=== PATIENT | male | born 1945 | race Caucasian/White ===

== ENCOUNTER → 2023-03-12 09:41 | Outpatient (CLI) | payer MEDICARE, SELFPAY ==
--- NOTE | ~2023-03-12 | MR_ITS ---
EXAMINATION: MR hip RT wo con DATE: 03/12/2023 11:11 INDICATION: Right hip pain. Suspected osteonecrosis. TECHNIQUE: Magnetic resonance imaging (MRI) of the right hip was performed without intravenous contr ast. Sequences included full-field axial PD-weighted FS FSE and T1-weighted FSE, coronal of the pelvi s with PD-weighted FS FSE, T2-weighted FSE and T1-weighted FSE, small field of view of the right hip with axial PD-weighted FS FSE, sagittal PD-weighted FS FSE, coronal PD-weighted FS FSE and coronal T2 weighted FSE. Additional radial T1-weighted FGR oriented orthogonal to the acetabular rim were obt ained for evaluation of the labrum. COMPARISON: None FINDINGS: Bones/labrum/cartilage: Alignment is normal. No fracture, avascular necrosis or pathologic marrow replacing process. Moderat e osteoarthritis at the right hip with partial thickness cartilage loss most severe anteriorly where it involves greater than 50% the cartilage thickness. There is a small flat central subchondral osteo phyte and minimal underlying subarticular edema-like signal change at the anterior articular surface of the femoral head. There is diffuse degenerative tearing of the right acetabular labrum which is mo st prominent from the anterosuperior to posterior superior labrum which appears thickened with promin ent amorphous increased signal. There is mild subarticular cystic change at the anterior and and post erior rim of the acetabulum. Moderate lower lumbar spondylosis. Fluid: Symmetric physiologic amount of fluid within both hip joints. Soft tissues: Normal and symmetric muscle bulk and signal in the pelvis and visualized proximal thighs. The iliopso as, gluteal and proximal hamstring tendons are normal. Sigmoid diverticulosis without adjacent from t race stranding to suggest diverticulitis. Limited evaluation of visceral organs of the pelvis is othe rwise unremarkable. Small right and moderate-sized left fat-containing bilateral inguinal hernias. Al so small bilateral hydroceles. No pathologically enlarged pelvic/inguinal lymphadenopathy. IMPRESSION: 1. Moderate right hip osteoarthritis with extensive degenerative tearing of the right acetabular labr um. 2. No osteonecrosis. 3. Small right and moderate-sized left fat-containing inguinal hernias. 4. Small bilateral hydroceles. Reviewed, dictated and finalized at location A. IMPRESSION: 1. Moderate right hip osteoarthritis with extensive degenerative tearing of the right acetabular labrum. 2. No osteonecrosis. 3. Small right and moderate-sized left fat-containing inguinal hernias. 4. Small bilateral hydroceles.
--- NOTE | ~2023-03-12 | MR_ITS ---
EXAMINATION: MR lumbar spine wo con DATE: 03/12/2023 11:01 INDICATION: Right-sided sciatica. Chronic back pain. TECHNIQUE: Magnetic resonance imaging (MRI) of the lumbar spine was performed without intravenous con trast. Sequences included sagittal T2-weighted FSE, sagittal T2-weighted FS FSE, sagittal T1-weighted FSE, and axial T2-weighted FSE. COMPARISON: None FINDINGS: There is 11 degrees levoscoliosis of lumbar spine. There is 3 mm retrolisthesis of L2 on L3 and 3 mm anterolisthesis of L4 on L5. There is mild chronic anterior wedging of T12 vertebral body. There are Schmorl's nodes at multiple levels. There is moderately decreased disc height at L1-L2, sev erely decreased disc height at L2-L3, moderately decreased disc height at L3-L4, and mildly decreased disc height at L5-S1. The distal spinal cord signal intensity is normal. The conus medullaris is at L1. The following disc levels are specifically discussed: L1-L2: The disc is bulging and has an annular fissure. There is moderate right and mild left facet jenny int osteoarthritis. There is mild right and moderate left neural foraminal stenosis. There is mild ce ntral canal stenosis. L2-L3: The disc is bulging and has an annular fissure. There is moderate right and severe left facet joint osteoarthritis. There is moderate right and mild left neural foraminal stenosis. There is mild central canal stenosis. L3-L4: The disc is bulging and has an annular fissure. There is severe bilateral facet joint osteoart hritis. There is moderate right and mild left neural foraminal stenosis. There is mild central canal stenosis. L4-L5: The disc is bulging. There is severe bilateral facet joint osteoarthritis. There are synovial cysts of the facet joints bilaterally. There is moderate right and mild left neural foraminal stenosi s. There is mild central canal stenosis. There is severe stenosis of right lateral recess and moderat e stenosis of left lateral recess. L5-S1: The disc is bulging and has an annular fissure. There is severe bilateral facet joint osteoart hritis. There is mild bilateral neural foraminal stenosis. There is mild central canal stenosis. IMPRESSION: 1. Moderate lumbar spondylosis. Reviewed, dictated and finalized at location E.
== END ==
PROVIDERS: PCP Internal Medicine; Visit Provider Orthopaedic Surgery
DX: M54.31 Sciatica, right side (principal); N43.3 Hydrocele, unspecified; M16.11 Unilateral primary osteoarthritis, right hip; K40.90 Unilateral inguinal hernia, without obstruction or gangrene, not specified as recurrent; M43.06 Spondylolysis, lumbar region
CPT/HCPCS: 72148; 73721